=== PATIENT | male | born 1955 | race Caucasian/White ===

== ENCOUNTER → 2017-06-24 13:28 | Outpatient (POV) | payer BC, SELFPAY | PROVIDERS: Family Provider Emergency Medicine; PCP Emergency Medicine; Visit Provider Internal Medicine | DX: Z00.00 Encounter for general adult medical examination without abnormal findings (principal) ==

== ENCOUNTER → 2017-06-25 15:11 | Outpatient (REF) | payer BC, SELFPAY ==
[2017-06-25 20:00] LABS: Amphetamine/Metha Screen,Urine Negative ng/mL (<1000); Barbiturates Screen,Urine Negative ng/mL (<200); Benzodiazepines Screen,Urine Positive ng/mL (200); Cannabinoid Screen,Urine Negative ng/mL (<50); Cocaine Screen,Urine Negative ng/g (<300); Methadone Screen,Urine Negative ng/mL (<300); Opiate Screen,Urine Positive ng/mL (<300); Phencyclidine Screen,Urine Negative ng/mL (<25)
== END ==
LOC: LAB 15:11
PROVIDERS: Visit Provider Emergency Medicine
DX: Z79.899 Other long term (current) drug therapy (principal)
CPT/HCPCS: 80305

== ENCOUNTER → 2017-07-23 12:52 | Outpatient (CLI) | payer BC, SELFPAY ==
--- NOTE | 2017-07-23 14:27 | CT_ITS ---
CT chest wo con HISTORY: ITS.REASON: LUNG NODULE ORDERING PHYSICIAN: Salud Saravia PATIENT AGE: 62 years TECHNIQUE: Axial images obtained. Sagittal and coronal reformatted images are also generated and reviewed. CONTRAST: None COMPARISON: 07/23/2017 FINDINGS: Scattered small mediastinal lymph nodes are present as before. Jugular lymph nodes are calcified. There are coronary artery calcifications or stent noted. Normal heart size without evidence of pericardial effusion. There is hyperinflation with attenuation of peripheral pulmonary vessels consistent with obstructive chronic bronchitis. Centrilobular emphysema with bullous changes are present in the apices as before. Previously described nodule in the right apex is slightly smaller measuring 11 x 9 mm previously 12 x 12 mm. There is now some central cavitation within the nodule. There is associated fibrotic changes in this region. Scattered parenchymal opacities are present in the right lung. The previously noted pneumonia in the right upper lobe and right lower lobe has improved. There are now parenchymal opacities in the left upper lobe which is developed in the interval within the apical posterior segment of the left upper lobe and anterior segment. A 15 x 19 mm irregular opacity is present in the superior segment left lower lobe and has developed in the interval and may also be heart of this inflammatory/infectious process. Parenchymal opacity also noted in the left lung base. No effusions are evident. Upper abdominal images show scattered isodensity is in the hepatic dome unchanged and a hyperdense nodule the right kidney posteriorly at 4 mm. IMPRESSION: 1. Centrilobular emphysema with obstructive chronic bronchitis and scattered bulla in the upper lobes. 2. Persistent but slightly smaller right upper lobe nodule with associated fibrotic change now with central cavitation. Right lower lobe and right upper lobe pneumonia has improved. New parenchymal opacities are now present in the left upper and left lower lobe consistent with pneumonia/inflammatory changes. Bronchiolitis obliterans with organizing pneumonia/cryptogenic organizing pneumonia is considered. 3. Recommend continued 6 month follow-up.
[2017-07-23 14:30] VITALS: PULSE 73; PULSE 78
== END ==
PROVIDERS: Family Provider Emergency Medicine; PCP Emergency Medicine; Visit Provider Nurse Practitioner Family
DX: R91.1 Solitary pulmonary nodule (principal); J43.2 Centrilobular emphysema
CPT/HCPCS: 71250; 94060; 94640; 94727; 94729

== ENCOUNTER → 2017-08-27 11:48 | Outpatient (CLI) | payer OTHER, SELFPAY | PROVIDERS: Visit Provider Emergency Medicine | DX: Z79.899 Other long term (current) drug therapy (principal) ==